=== PATIENT | male | born 1940 | race Caucasian/White ===

== ENCOUNTER 2022-05-13 23:43 | Emergency (ER) | payer OTHER ==
[~2022-05-13] VITALS: Ht 188 cm; Wt 123.8 kg
[2022-05-14 00:21] VITALS: BP 145/82
== END 2022-05-14 02:38 | disposition left against medical advice (07) ==
LOC: ER 23:43
DX: R31.9 Hematuria, unspecified (principal); R33.9 Retention of urine, unspecified; I10 Essential (primary) hypertension
CPT/HCPCS: 74176